=== PATIENT | male | born 1965 | race Caucasian/White ===

== ENCOUNTER 2021-11-28 09:29 | Emergency (ER) | payer OTHER ==
[~2021-11-28] VITALS: Ht 195.6 cm; Wt 136.1 kg
[~2021-11-28 09:29] MED LIST: ABIRATERONE AC250 MG PO; CELEXA20 MG PO; DIOVAN320 MG PO; NORVASC10 MG PO; PREDNISONE5 MG PO
== END 2021-11-28 10:48 | disposition home or self-care (01) ==
LOC: ED 09:29
DX: I10 Essential (primary) hypertension (principal); Z85.46 Personal history of malignant neoplasm of prostate; Z79.899 Other long term (current) drug therapy; Z79.52 Long term (current) use of systemic steroids
CPT/HCPCS: 99283

== ENCOUNTER 2022-06-17 12:20 | Emergency (ER) | payer OTHER ==
[~2022-06-17] VITALS: Ht 195.6 cm; Wt 130.6 kg
[2022-06-17] MEDS ORDERED: AMLODIPINE BESY10 MG PO (12:39)
--- NOTE | 2022-06-19 15:49 | EKG ---
[facility] [address] [place] [address] Signed Sinus rhythm with premature atrial complexes with aberrant conduction Otherwise normal ECG No previous ECGs available Confirmed by BLAINE DODD MD ([id number]) on 06/19/2022 3:49:01 PM Electronically Signed By: BLAINE DODD MD 06/19/22 1549 PATIENT NAME: YANN KAHN Electrocardiogram DATE OF : 61 PHYSICIAN: BLAINE DODD MD REPORT #: [id number] REPORT IS CONFIDENTIAL AND NOT TO BE RELEASED WITHOUT AUTHORIZATION
== END 2022-06-17 14:18 | disposition home or self-care (01) ==
LOC: ED 12:20
DX: I49.1 Atrial premature depolarization (principal); E87.6 Hypokalemia; I10 Essential (primary) hypertension; Z79.899 Other long term (current) drug therapy; Z79.52 Long term (current) use of systemic steroids
CPT/HCPCS: 36415; 80053; 83735; 84484; 85025; 93005; 93010; 99285-25; A9270

== ENCOUNTER 2022-11-07 23:07 | Emergency (ER) | payer OTHER ==
[~2022-11-07] VITALS: Ht 195.6 cm; Wt 137.0 kg
[~2022-11-07 23:07] MED LIST changes: +AMLODIPINE BESY10 MG PO
--- NOTE | 2022-11-09 13:03 | EKG ---
[facility] [address] [place] [address] Signed Normal sinus rhythm Normal ECG No previous ECGs available Confirmed by BUSHRA LEROY MD ([id number]) on 11/09/2022 1:03:19 PM Electronically Signed By: BUSHRA LEROY MD 11/09/22 1303 PATIENT NAME: YANN KAHN Electrocardiogram DATE OF : 61 PHYSICIAN: BUSHRA LEROY MD REPORT #: [id number] REPORT IS CONFIDENTIAL AND NOT TO BE RELEASED WITHOUT AUTHORIZATION
== END 2022-11-08 06:20 | disposition home or self-care (01) ==
LOC: ED 23:07
DX: T46.1X2A Poisoning by calcium-channel blockers, intentional self-harm, initial encounter (principal); I10 Essential (primary) hypertension; Z79.899 Other long term (current) drug therapy; Z79.52 Long term (current) use of systemic steroids
CPT/HCPCS: 36415; 80053; 81001; 84443; 85025; 87502; 93005; 93010; 99285-25; G0480; U0003

== ENCOUNTER 2024-08-31 10:31 | Emergency (ER) | payer MEDICARE, OTHER ==
[~2024-08-31] VITALS: Ht 190.5 cm; Wt 142.6 kg
[2024-08-31] MEDS ORDERED: OXYCODONE HCL5 MG PO (10:53)
[2024-08-31] MEDS ORDERED: ondansetron HCL 4 MG/2 ML VIAL IV ONE (11:15)
[2024-08-31] MEDS ORDERED: HYDROmorphone HCL 1 MG/ML SYR IV PRN (11:15)
[2024-08-31 11:19] LABS: BASOPHILS 0.8 % (0-2); EOSINOPHILS 1.2 % (0-6); HEMOGLOBIN 13.2 g/dL (12.0-18.0); LYMPHOCYTES 19.1 % (24-44); MCH 30.8 (27-36); MCHC 34.6 g/dl (30-36); MCV 88.9 fl (81-99); MONOCYTES 10.3 % (0-12); NEUTROPHILS 68.6 % (39-80); PLATELET COUNT 278 K/uL (140-440); RBC 4.28 M/ul (4.3-5.7)
[2024-08-31 11:33] LABS: ALBUMIN 3.8 g/dL (3.4-5.0); ALBUMIN/GLOBULIN RATIO 1.19 (1.1-2.4); ANION GAP 13.3 (7-21); BUN/CREATININE RATIO 14.63 (6.0-28.6); CALCIUM 8.6 mg/dL (8.5-10.1); CREATININE, SERUM 1.23 mg/dL (0.70-1.30); POTASSIUM 3.3 mmol/L (3.5-5.1)
[2024-08-31] MEDS ORDERED: DEXAMETHASONE4 MG PO (15:36)
[2024-08-31] MEDS ORDERED: DEXAMETHASONE SOD PHOS 10 MG/ML VIAL PO ONE (15:45)
[2024-08-31] MEDS ORDERED: dexAMETHasone 4 MG TAB PO ONE (16:00)
[2024-08-31 16:01] VITALS: BP 158/79
== END 2024-08-31 16:17 | disposition home or self-care (01) ==
LOC: ED 10:31
PROVIDERS: Emergency Medicine
DX: C61 Malignant neoplasm of prostate (principal); C79.51 Secondary malignant neoplasm of bone; G95.29 Other cord compression; I10 Essential (primary) hypertension; Z79.899 Other long term (current) drug therapy
CPT/HCPCS: 36415; 72157; 72158; 80053; 85025; 99284-25; A9577; J1171; J2405; J8540

== ENCOUNTER 2024-10-26 16:51 | Emergency (ER) | payer MEDICARE, OTHER ==
[~2024-10-26] VITALS: Ht 190.5 cm; Wt 132.4 kg
[~2024-10-26 16:51] MED LIST changes: +DEXAMETHASONE4 MG PO; +OXYCODONE HCL5 MG PO
[2024-10-26] MEDS ORDERED: HYDROmorphone HCL 1 MG/ML SYR IV PRN (17:30)
[2024-10-26 17:47] LABS: BASOPHILS 0.6 % (0-2); EOSINOPHILS 3.1 % (0-6); HEMATOCRIT 37.3 % (35.0-50.0); HEMOGLOBIN 13.2 g/dL (12.0-18.0); LYMPHOCYTES 11.7 % (24-44); MCH 30.3 (27-36); MCHC 35.4 g/dl (30-36); MCV 85.6 fl (81-99); MONOCYTES 10.8 % (0-12); NEUTROPHILS 73.8 % (39-80); PLATELET COUNT 280 K/uL (140-440); RBC 4.36 M/ul (4.3-5.7); RDW 14.2 (10.5-15.0)
[2024-10-26 18:01] LABS: ALBUMIN 3.7 g/dL (3.4-5.0); ALBUMIN/GLOBULIN RATIO 1.16 (1.1-2.4); BUN/CREATININE RATIO 11.6 (6.0-28.6); CALCIUM 8.5 mg/dL (8.5-10.1); CREATININE, SERUM 1.12 mg/dL (0.70-1.30); PROTEIN, TOTAL 6.9 g/dL (6.4-8.2)
[2024-10-26] MEDS ORDERED: ondansetron HCL 4 MG/2 ML VIAL IV ONE (19:15)
[2024-10-26] MEDS ORDERED: ONDANSETRON ODT8 MG PO (19:54)
[2024-10-26] MEDS ORDERED: DILAUDID2 MG PO (19:54)
[2024-10-26] MEDS ORDERED: HYDROmorphone HCL 2 MG HOME.PACK PO ONE (20:00)
[2024-10-26 20:30] VITALS: BP 182/107
== END 2024-10-26 20:30 | disposition home or self-care (01) ==
LOC: ED 16:51
PROVIDERS: Emergency Medicine
DX: C79.51 Secondary malignant neoplasm of bone (principal); C61 Malignant neoplasm of prostate; I10 Essential (primary) hypertension; Z79.899 Other long term (current) drug therapy
CPT/HCPCS: 36415; 71260; 72131; 80053; 85025; 99285-25; J1171; J2405; Q9967

== ENCOUNTER 2024-11-09 14:40 | Emergency (ER) | payer MEDICARE, OTHER ==
[~2024-11-09] VITALS: Ht 190.5 cm; Wt 131.5 kg
[~2024-11-09 14:40] MED LIST changes: +DILAUDID2 MG PO; +ONDANSETRON ODT8 MG PO
--- OUTSIDE RECORDS SUMMARY | 2024-11-09 14:46 | XMS ---
PreManage Notification: YANN KAHN Security 21 Dealer Events No recent Security Events currently on file CRITERIA MET - [facility] - 2 Visits in 30 Days CARE PROVIDERS -[facility] Dentist: Wildlife Protector [facility] PHONE: [phone] Arsen Peterson- Dentist: Wildlife Protector Current [facility] PHONE: [phone] [facility] [place]: [facility] Current [facility] PHONE: [phone] ZAK RODRÍGUEZ Internal Medicine: Medical Oncology Current PHONE: [phone] Surendra Spain Physician Current PHONE: [phone] MOUNIKA MCMAHAN Neurological Surgery Current PHONE: [phone] Thom has no Care Guidelines for this patient. Edson VISIT COUNT (12 MO.) 3 LINDA Font[facility]ot TOTAL 3 NOTE: Visits indicate total known visits. ED/UCC VISIT TRACKING (12 MO.) 11/09/2024 14:40 [facility]DA Godinez [place] TYPE: Emergency COMPLAINT: - ABDOMINAL PAIN 10/26/2024 16:51 [facility] [place] TYPE: Emergency COMPLAINT: - POST OP PROBLEM DIAGNOSES: - Essential (primary) hypertension - Malignant neoplasm of prostate - Other usp (current) drug therapy - Secondary malignant neoplasm of bone - Weakness 08/31/2024 10:32 [facility] [place] TYPE: Emergency COMPLAINT: - BACK PAIN DIAGNOSES: - Anesthesia of skin - Essential (primary) hypertension - Malignant neoplasm of prostate - Other cord compression - Other longitudinal float operator (current) drug therapy - Secondary malignant neoplasm of bone INPATIENT VISIT TRACKING (12 MO.) 09/05/2024 16:58 [facility] TYPE: Neuro Surgery DIAGNOSES: [id number]. Unspecified cord compression - Malignant neoplasm of prostate - Unspecified cord compression [email or web address]
[2024-11-09] MEDS ORDERED: LIDOCAINE 2% VISCOUS 6 ML SYR TOP ONE (15:15)
[2024-11-09] MEDS ORDERED: SOD PHOSPHATE/SOD BIPHOSPHATE 132 ML BTL PR ONE (16:00)
[2024-11-09 16:36] VITALS: BP 177/91
== END 2024-11-09 16:35 | disposition home or self-care (01) ==
LOC: ED 14:40
DX: K56.41 Fecal impaction (principal); K64.9 Unspecified hemorrhoids; C61 Malignant neoplasm of prostate; I10 Essential (primary) hypertension; Z79.899 Other long term (current) drug therapy
CPT/HCPCS: 99283

== ENCOUNTER 2025-03-31 17:46 | Inpatient (IN) | payer MEDICARE ==
[~2025-03-31] VITALS: Ht 195.6 cm; Wt 129.4 kg
[2025-03-31 18:25] LABS: BASOPHILS 0.4 % (0.2-1.2); EOSINOPHILS 0.7 % (0.8-7.0); HEMATOCRIT 40.4 % (40.1-51.0); HEMOGLOBIN 14.4 g/dL (13.7-17.5); LYMPHOCYTES 19.6 % (21.8-53.1); MCH 29.4 PG (25.7-32.2); MCHC 35.6 g/dL (32.3-36.5); MCV 82.4 fL (79.0-92.2); NEUTROPHILS 65.9 % (34.0-67.9); PLATELET COUNT 214 K/uL (163-337)
[2025-03-31] MEDS ORDERED: SODIUM CHLORIDE 0.9% 1,000 ML IV ONE (18:30)
[2025-03-31] MEDS ORDERED: ondansetron HCL 4 MG/2 ML VIAL IV PRN ×2 (18:30→22:00)
[2025-03-31] MEDS ORDERED: HYDROmorphone HCL 1 MG/ML SYR IV PRN ×3 (18:30→22:00)
[2025-03-31 18:35] LABS: ALBUMIN 4.2 g/dL (3.4-5.0); ALBUMIN/GLOBULIN RATIO 1.31 (1.1-2.4); ANION GAP 14.1 (7-21); BILIRUBIN, TOTAL 1.7 mg/dL (0.2-1.0); BUN/CREATININE RATIO 8.94 (6.0-28.6); CALCIUM 9.5 mg/dL (8.5-10.1); CREATININE, SERUM 1.23 mg/dL (0.70-1.30); POTASSIUM 3.1 mmol/L (3.5-5.1); PROTEIN, TOTAL 7.4 g/dL (6.4-8.2)
[2025-03-31] MEDS ORDERED: POTASSIUM CHLORIDE 10 MEQ TABCR PO ONE (20:45)
[2025-03-31] MEDS ORDERED: FENTANYL 50 MCG/HR 1 EA TDSY TD ONE (20:45)
[2025-03-31] MEDS ORDERED: ACETAMINOPHEN 325 MG TAB PO PRN (22:00)
[2025-03-31 23:07] VITALS: BP 217/118
--- NOTE | 2025-03-31 23:10 | NUR ---
BEDSIDE REPORT RECEIVED FROM MALCOLM Diallo RN. PATIENT ADMITTED TO MS RM 121. VS OBTAINED, ASSESSMENT COMPLETED. PATIENT REPORTING 10/10 PAIN. RESPIRATIONS EVEN AND UNLABORED. HE IS REPORTING DISCOMFORT IN BILATERAL HIPS.
[2025-03-31 23:53] VITALS: BP 199/107
[2025-04-01] VITALS (12 sets, daily range): BP systolic 150–203; BP diastolic 80–109
[2025-04-01] MEDS ORDERED: AMLODIPINE BESYLATE 10 MG TAB PO SCH ×2 (00:15→21:00)
[2025-04-01] MEDS ORDERED: LOSARTAN POTASSIUM 100 MG TAB PO SCH (00:15)
[2025-04-01] MEDS ORDERED: LOSARTAN POTASSIUM 100 MG TAB ONE (00:18)
--- NOTE | 2025-04-01 00:27 | NUR ---
SCHEDULED MEDS GIVEN PER ORDER, VS OBTAINED AND RECORDED. PATIENT RESTING, WOKE TO VERBAL CUES. REPORTS PAIN IS IMPROVED AND RATES IT A 3/10. HE DENIES ANY NEEDS, CALL LIGHT IN REACH.
--- NOTE | 2025-04-01 01:48 | NUR ---
VS OBTAINED AND RECORDED. PATIENT RESTING, CPOX AT BEDSIDE. RESPIRATIONS EVEN AND UNLABORED. RESPONDS APPROPRIATELY TO VOICE COMMANDS. NO NEEDS, CALL LIGHT IN REACH.
--- NOTE | 2025-04-01 04:15 | NUR ---
PATIENT GIVEN PRN PAIN MEDICATION FOR 7/10 PAIN. CPOX AT BEDSIDE. HE DENIES OTHER NEEDS, URINAL EMPTIED. CALL LIGHT IN REACH
--- NOTE | 2025-04-01 05:12 | NUR ---
TC PLACED TO DR. DE LUNA TO DISCUSS BLOOD PRESSURE READINGS AND HOME MEDICATIONS. DR. DE LUNA INFORMED THAT PATIENT HAS NOT BEEN TAKING HIS MEDICATIONS FOR 1 WEEK. NO NEW ORDERS AT THIS TIME.
--- NOTE | 2025-04-01 05:16 | NUR ---
PRN PAIN MEDICATION ADMINISTERED, pt GRIMACING, INITIALLY DECLINES PAIN MEDICATION. SPO2 DROPS TO 82% WITH EYES CLOSED, 2L OXYGEN BY NC APPLIED. pt CLOSING EYES. CALL LIGHT IN REACH. CPOX ON.
--- NOTE | 2025-04-01 07:10 | NUR ---
PT AWAKE AND LAYING IN BED. CALL LIGHT WITHIN REACH, NO REQUESTS AT THIS TIME. REPORT RECEIVED FROM ZOYA Landin RN.
[2025-04-01] MEDS ORDERED: DULOXETINE HCL30 MG PO (07:39)
[2025-04-01] MEDS ORDERED: HYDROMORPHONE HC2 MG PO (07:40)
[2025-04-01] MEDS ORDERED: ELIGARD22.5 MG SUB-Q (07:49)
[2025-04-01] MEDS ORDERED: ZYTIGA500 MG PO (07:51)
--- NOTE | 2025-04-01 08:40 | NUR ---
PT HAD MINIMAL EMESIS AND NAUSEA AFTER FIRST BITE OF BREAKFAST. ZOFRAN GIVEN ORDERED. CALL LIGHT WITHIN REACH.
[2025-04-01 08:54] LABS: ALBUMIN 3.7 g/dL (3.4-5.0); ALBUMIN/GLOBULIN RATIO 1.12 (1.1-2.4); ANION GAP 13.1 (7-21); BILIRUBIN, TOTAL 1.1 mg/dL (0.2-1.0); BUN/CREATININE RATIO 9.61 (6.0-28.6); CALCIUM 8.9 mg/dL (8.5-10.1); CREATININE, SERUM 1.04 mg/dL (0.70-1.30); PHOSPHORUS, INORGANIC 4.8 mg/dL (2.5-4.9); POTASSIUM 3.1 mmol/L (3.5-5.1)
[2025-04-01 08:59] LABS: BASOPHILS 0.3 % (0.2-1.2); EOSINOPHILS 1.4 % (0.8-7.0); HEMATOCRIT 40.3 % (40.1-51.0); HEMOGLOBIN 14.2 g/dL (13.7-17.5); LYMPHOCYTES 13.9 % (21.8-53.1); MCH 29.6 PG (25.7-32.2); MCHC 35.2 g/dL (32.3-36.5); MCV 84.1 fL (79.0-92.2); MONOCYTES 11.7 % (5.3-12.2); NEUTROPHILS 72.4 % (34.0-67.9); PLATELET COUNT 190 K/uL (163-337); RBC 4.79 M/uL (4.63-6.08)
--- NOTE | 2025-04-01 09:00 | NUR ---
PT STATES NAUSEA IS SUBSIDING AND ALMOST GONE. PT STATES PAIN IS STILL TOLERABLE AT THIS TIME AT 4/10 TO ROEBRTO. HIPS. PT ATTEMPTING TO EAT HIS BANANA. NO REQUESTS AT THIS TIME. CALL LIGHT WITHIN REACH. CPOX ON. PT CURRENTLY ON RA WITH O2 SATS 94%.
--- NOTE | 2025-04-01 09:40 | NUR ---
PT RESTING IN BED WITH CPOX ON. O2 AT 2L PER NC DUE TO PT 02 SATS DROPPING TO 88 WHEN ASLEEP. PT STATES PAIN IS STILL TOLERABLE AT THIS TIME AND THAT HE WAS ABLE TO EAT HIS BANANA AND IS NO LONGER NAUSEOUS. CALL LIGHT WITHIN REACH.
[2025-04-01] MEDS ORDERED: ZOLEDRONIC4 MG/100 M IV (09:52)
[2025-04-01] MEDS ORDERED: POTASSIUM CHLORIDE 40 MEQ,LIDOCAINE HCL 1% 40 MG in DEXTROSE 5% 250 ML IV ONE (10:00)
--- NOTE | 2025-04-01 10:26 | NUR ---
PATIENT CALLED AT 0830 REPORTING VOMITING AFTER ATTEMPTING TO EAT BREAKFAST. LEBRON BARROS NOTIFIED AND ENTERED THE ROOM. FRESH EMESIS BAGS WERE PROVIDED. DR. DECKER IN THE ROOM WITH PATIENT.
[2025-04-01] MEDS ORDERED: ondansetron HCL 4 MG/2 ML VIAL IV PRN (10:30)
[2025-04-01] MEDS ORDERED: ACETAMINOPHEN 325 MG TAB PO PRN (10:30)
[2025-04-01] MEDS ORDERED: PROCHLORPERAZINE EDISYLATE 10 MG/2 ML VIAL IV PRN (10:30)
--- NOTE | 2025-04-01 10:30 | NUR ---
medications reconciled by pharmacy
--- NOTE | 2025-04-01 10:35 | NUR ---
DR DE LUNA IN TO SEE PT AND DISCUSS POC.
--- NOTE | 2025-04-01 11:32 | NUR ---
PT/OT IN TO WORK WITH PATIENT.
[2025-04-01] MEDS ORDERED: DULOXETINE HCL 30 MG CAP PO SCH (11:51)
[2025-04-01] MEDS ORDERED: PHARMACY RENAL DOSE ADJUSTMENT 1 DOSE MISC PO SCH (12:00)
--- NOTE | 2025-04-01 12:18 | NUR ---
PT SITTING UP IN CHAIR EATING LUNCH. DENIES NAUSEA AT THIS TIME. RATES PAIN TO ROBERTO HIPS 4/10 AND STATES IS TOLERABLE. CALL LIGHT WITHIN REACH. NO REQUESTS AT THIS TIME.
--- NOTE | 2025-04-01 13:07 | NUR ---
CM MET WITH PATIENT FOR DISCHARGE PLANNING. PT LIVES WITH DTR IN WITH 6 STAIRS TO ENTER. PT'S DTR PICKS UP MEDICATIONS AND GROCERIES AND ASSISTS WITH TRANSPORTATION TO APPOINTMENTS LOCALLY. PT USES A PRIVATE TRANSPORT, [facility], FOR TRANSPORTATION TO [place]. PT USES [facility]UB CHAIR. PT HAS HAD HOME HEALTH FOR SHORT TIME IN THE PAST AND WOULD BE OPEN TO SERVICES AGAIN IF NEEDED. PT ANTICIPATES DISCHARGE HOME WITHOUT SERVICES ONCE PAIN CONTROL IS OBTAINED. CM WILL CONTINUE TO FOLLOW AND ASSIST WITH IDENTIFIED DISCHARGE NEEDS.
--- NOTE | 2025-04-01 14:01 | NUR ---
OBSERVATION NURSE IN TO VISIT WITH PT. PT SITTING UP IN CHAIR WITH LEGS ELEVATED, STATES PAIN REMAINS AT 4/10 TO ROBERTO. HIPS AND IS TOLERABLE AT THIS TIME. CALL LIGHT WITHIN REACH. PT ON RA WITH CPOX ON. O2 SAT 94%. NO REQUESTS AT THIS TIME.
--- NOTE | 2025-04-01 14:08 | NUR ---
UR CLINICAL REVIEW: 2 MN FOR VERSALUS-PER RADIO FREQUENCY TECHNICIAN MEETS INPT FOR PAIN CONTROL WITH NEED FOR IV PAIN MANAGEMENT MEDICARE INPT 04/01/25 @ 1048 ORDER MATCHES REG NO AUTH REQUIRIED PER MEDICARE GUIDELINES DISCHARGE DIPO PENDING FURTHER PAIN CONTROL/PT/OT EVALS
--- NOTE | 2025-04-01 15:33 | NUR ---
2PA WITH FWW FROM THE CHAIR TO THE BED. FRESH ICE WATER WAS PROVIDED. URINAL EMPTIED, RINSED, AND RECORDED. PATIENT'S CELL PHONE WAS RETRIEVED.
--- NOTE | 2025-04-01 15:33 | NUR ---
PT LAYING IN BED WITH EYES CLOSED AND RESPIRATIONS EVEN AND UNLABORED. CPOX ON AND PT ON RA. O2 SAT 91%. CALL LIGHT WITHIN REACH. NO SIGNS OF PAIN OR DISCOMFORT AT THIS TIME.
--- NOTE | 2025-04-01 16:38 | NUR ---
PT RESTING IN BED WITH EYES CLOSED AND RESPIRATIONS EVEN AND UNLABORED. CPOX ON, PT ON RA. 02 SAT 93%. CALL LIGHT WITHIN REACH.
--- NOTE | 2025-04-01 16:57 | NUR ---
PT AWAKE AND RESTING IN BED. STATES HE WANTS TO WAKE UP A LITTLE BIT MORE BEFORE HE EATS HIS DINNER. STATES PAIN 4/10 TO ROBERTO HIPS, STATES IS TOLERABLE AT THIS TIME. CALL LIGHT WITHIN REACH. CPOX ON AND 02 SAT 96% ON RA.
--- NOTE | 2025-04-01 17:32 | NUR ---
ZOFRAN GIVEN FOR NAUSEA. PT HAD 50 CC EMESIS. PT SITTING UP IN BED WITH CALL LIGHT WITHIN REACH. PARDEEP LEMON STOCKBRIDGE GIVEN TO PT REQUESTED, ALONG WITH WARM BLANKET. NO OTHER REQUESTS AT THIS TIME.
--- NOTE | 2025-04-01 18:01 | NUR ---
PT RESTING IN BED, STATES NAUSEA HAS SUBSIDED. ENSURE MAX PROTEIN GIVEN. PT HAS REDENNED BUT BLANCHABLE AREA TO COCCYX. ENCOURAGED PT TO REPOSITION OFTEN, PT STATED UNDERSTANDING. CALL LIGHT WITHIN REACH.
--- NOTE | 2025-04-01 19:59 | NUR ---
INTO CHECK ON PATIENT. PATIENT IS VERY NAUSEATED. PT REQUESTING MORE ZOFRAN. PATIENT IS NOT ABLE TO HAVE MORE ZOFRAN YET. COMPAZINE ON MEDICATION LIST AND GIVEN.
--- NOTE | 2025-04-01 21:43 | NUR ---
PATIENT IS SLEEPING, REGULAR RESPIRATIONS NOTED. CPOX ON, CALL LIGHT WITHIN REACH, LIGHTS TURNED DOWN.
--- NOTE | 2025-04-01 23:27 | NUR ---
PATIENT CURRENTLY SLEEPING HIS BACK, SNORING. REGULAR RESPIRATIONS NOTED.
[2025-04-02] VITALS (12 sets, daily range): BP systolic 161–203; BP diastolic 81–106
--- NOTE | 2025-04-02 00:06 | NUR ---
Pt report received from LEBRON Pina. Pt is resting supine in bed, eyes closed, CPOX at 94% on room air. Breathing is regular, even, and non-labored. Side rails up x4, call light in reach. White board updated.
--- NOTE | 2025-04-02 02:20 | NUR ---
While in with pt for IV pain and anti-nausea medication, pt states when he woke up, he was itchy all over. Notified charge authorizer and will contact Dr. Buckley shortly, to request benadryl if a bed bath and lotion does not work.
--- NOTE | 2025-04-02 02:52 | NUR ---
PHONE CALL TO MD, NOTIFIED pt ITCHY. PRN BENADRYL ORDERED, REPEATED BACK TO VERIFY ORDER. EMAR UPDATED. PRIMARY RN NOTIFIED OF NEW ORDER.
[2025-04-02] MEDS ORDERED: diphenhydrAMINE HCL 50 MG/ML VIAL IV PRN (03:00)
[2025-04-02 05:59] LABS: BASOPHILS 0.4 % (0.2-1.2); EOSINOPHILS 1.3 % (0.8-7.0); HEMATOCRIT 39.4 % (40.1-51.0); HEMOGLOBIN 13.7 g/dL (13.7-17.5); LYMPHOCYTES 15.9 % (21.8-53.1); MCH 29.3 PG (25.7-32.2); MCHC 34.8 g/dL (32.3-36.5); MCV 84.4 fL (79.0-92.2); MONOCYTES 13.7 % (5.3-12.2); NEUTROPHILS 68.5 % (34.0-67.9); PLATELET COUNT 179 K/uL (163-337); RBC 4.67 M/uL (4.63-6.08)
[2025-04-02 06:14] LABS: ALBUMIN 3.7 g/dL (3.4-5.0); ALBUMIN/GLOBULIN RATIO 1.16 (1.1-2.4); ANION GAP 11.4 (7-21); BILIRUBIN, TOTAL 1.5 mg/dL (0.2-1.0); BUN/CREATININE RATIO 11.34 (6.0-28.6); CALCIUM 9.1 mg/dL (8.5-10.1); CREATININE, SERUM 0.97 mg/dL (0.70-1.30); POTASSIUM 3.4 mmol/L (3.5-5.1); PROTEIN, TOTAL 6.9 g/dL (6.4-8.2)
[2025-04-02] MEDS ORDERED: POTASSIUM CHLORIDE 10 MEQ TABCR PO ONE (07:45)
--- NOTE | 2025-04-02 08:50 | NUR ---
In and spoke with Davey. He states he lives with his daughter that works at the hospital as a nurse. He states his 5 yo granddaughter stays with him. He states he has had severe pain for the last several days and 4 days last week. He states last week he was unable to walk due to his pain and could not leave his room for 4 days. Pt does not believe his pain is from his metastatic cancer, but from nerve pain following a surgery. We discussed briefly Hospice. He does not want Hospice as he feels it is too soon. He cannot remember if he qualifies for cg in the home. His is on Medicaid long term care phlebotomist and lives at [place]. He agrees I can call [facility] to check if he qualifies for OPI or Aging and Disability for cg hours.
[2025-04-02] MEDS ORDERED: ENOXAPARIN SODIUM 40 MG/0.4 ML SYR SUB-Q SCH (09:00)
--- NOTE | 2025-04-02 09:56 | NUR ---
I called and spoke with Linnea at [facility]. She was able to view Davey qualified for OPI through [employer] in January. She states it was not followed up on. She is emailing Noah at [facility] to ask her to call Davey or the family.
--- NOTE | 2025-04-02 10:05 | NUR ---
Called and left a message for pts daughter, Chery. Requested a call and let her know he has been approved for an in home cg.
--- NOTE | 2025-04-02 10:11 | NUR ---
Physical therapist, Irene, advised that the pt's systolic BP was 198. Reviewed BP trends over the last 24 hours and noted they are trending up. She spoke with Dr. Buckley who advised he would order hydralazine.
[2025-04-02] MEDS ORDERED: hydrALAZINE HCL 20 MG/ML VIAL IV PRN (10:15)
--- NOTE | 2025-04-02 11:17 | NUR ---
1000 BP WAS 203/106, LEBRON PAK NOTIFIED. RETAKEN AT 1115 AND BP WAS 193/81. LEBRON PAK NOTIFIED AGAIN AND REQUESTED IT TO BE RECHECKED AT 1130. PATIENT IS CURRENTLY CALM AND RESTING IN BED.
--- NOTE | 2025-04-02 11:35 | NUR ---
Administered 10mg Apresoline IV per Emar for elevated SBP of 203. Rechecked the BP 15 minutes post administration and obtained a SBP of 193. PT currently in with pt and SBP is 160.
--- NOTE | 2025-04-02 11:45 | NUR ---
Notified Dr. Buckley of pt's updated BP readings. PT had advised that after they got him up to the chair, the pt's SBP was 201.
--- NOTE | 2025-04-02 12:38 | NUR ---
In with pt for hourly rounding and pain assessment. Pt declines any pain meds at this time because "i'm feeling pretty foggy". Pt is sitting up in the chair with his lunch tray in front of him, legs elevated, call light in reach. When offered, pt states he would like to eat some of the fruit that his daughter brought for him, and a fresh lemon-barrow twist over ice. Pt denies further needs at this time.
--- NOTE | 2025-04-02 13:00 | NUR ---
REPORT RECIEVED FROM LEBRON PAK. PATIENT SITTING UP IN HIS CHAIR AND REPORTING 6/10 PAIN, BUT DECLINES PAIN MEDICATION AT THIS TIME. PATIENT REPORTS HE WILL LET THIS RN KNOW WHEN HE WANTS PAIN MEDICATION. PATIENT WITHOUT ANY NEEDS AT THIS TIME. PATIENT ATTEMPTING TO EAT LUNCH.
[2025-04-02] MEDS ORDERED: LOSARTAN POTASSIUM 50 MG TAB PO SCH (13:47)
--- NOTE | 2025-04-02 13:55 | NUR ---
PATIENT REPORTING NAUSEA. PATIENT MEDICATED PER EMAR. PATIENT REQUESTING TO GET INTO BED. THIS RN AND ABELARDO ROTH ASSISTED PATIENT BACK IN TO BED VIA 2PR SBA/PIVOT. FRESH LINEN PROVIDED. IV FLUSHED WITH 10ML OF NS AND IS SALINE LOCKED. HOT PACKS X2 PROVIDED. LIGHT DIMMED. PATIENT WITHOUT FURTHER NEEDS AT THIS TIME. CALL LIGHT AND PERSONAL BELONGINGS ARE WITHIN REACH.
--- NOTE | 2025-04-02 14:54 | NUR ---
2PA WITH FWW PIVOT TRANSFER FROM THE CHAIR TO THE BED BY LEBRON CARLOS AND THIS JUNIOR PROGRAMMER ANALYST. PATIENT REPORTED TO RN FEELING NAUSEOUS. HELP WAS OFFERED TO RN ONCE TRANSFER WAS COMPLETE BUT DECLLINED NEEDING FURTHER HELP.
--- NOTE | 2025-04-02 14:54 | NUR ---
PATIENT RESTING IN BED ON HIS BACK WITH HIS EYES CLOSED AND HIS MOUTH OPEN. EVEN AND UNLABORED RESPIRATIONS NOTED. CALL LIGHT AND PERSONAL BELONGINGS ARE WITHIN REACH.
--- NOTE | 2025-04-02 15:45 | NUR ---
PATIENT RESTING IN BED ON HIS BACK WITH HIS EYES CLOSED AND MOUTH OPENED. EVEN AND UNLABORED RESPIRATIONS NOTED. CALL LIGHT AND PERSONAL BELONGINGS ARE WITHIN REACH.
--- NOTE | 2025-04-02 17:35 | NUR ---
QUALITY CONTROL TECH [employer] REPORTS PATIENT WITH BP OF 200/95. THIS RN IN ROOM TO ASSESS PATIENT. PATIENT REPORT THAT THE NAUSEA IS GONE, BUT PAIN IS "GETTING UP THERE". PAIN MEDICATIONS OFFERED AND PATIENT STATES "NO, NOT YET. I'LL LET YOU KNOW WHEN I NEED THEM." PATIENT DENIES A HEADACHE. THIS RN RECHECKED PATIENT'S BP ON THE RIGHT ARM AND WAS 161/82. FRESH ICE WATER PROVIDED. PATIENT HOB LOWERED PER PATIENT REQUEST, BUT PATIENT DENIES WANTING TO BE REPOSITIONED. PATIENT WITHOUT FURTHER NEEDS AT THIS TIME. CALL LIGHT AND PERSONAL BELONGINGS ARE WITHIN REACH. VITAL SIGNS ARE STABLE. CPOX AT BEDSIDE.
--- NOTE | 2025-04-02 18:38 | NUR ---
PATIENT RESTING IN BED ON HIS BACK WITH HIS EYES CLOSED AND HIS MOUTH OPEN. EVEN AND UNLABORED RESPIRATIONS NOTED. CALL LIGHT AND PERSONAL BELONGINGS ARE WITHIN REACH. CPOX AT BEDSIDE.
--- NOTE | 2025-04-02 19:24 | NUR ---
RECEIVED REPORT FROM LEBRON CARLOS. PT RESTING UPON ENTERING ROOM. DENIES NEEDS OR CONCERNS AT THIS TIME AND IS QUICKLY BACK TO SLEEP. CALL LIGHT WITHIN REACH.
[2025-04-02] MEDS ORDERED: FENTANYL 75 MCG/HR TD SCH ×2 (21:00)
--- NOTE | 2025-04-02 21:45 | NUR ---
PT RESTING QUIETLY, AWAKENED EASILY. REPORTS BILAT HIP PAIN 04/18, MEDICATED W/ PRN DILAUDID. PT REQUESTS PRN ZOFRAN W/ IV PAIN MED IT MAKES HIM QUEASY-PRN ZOFRAN ADMINISTERED. LSC. HRR. BTA, LBM 03/27, WANTS BOWEL MEDS IN AM. VOIDS VIA URINAL. BLE NUMBNESS STERNUM DOWN BASELINE. RFA IV WNL. HAS NOT BEEN OOB THIS SHIFT. CALL LIGHT WITHIN REACH.
--- NOTE | 2025-04-02 21:50 | NUR ---
FENTANYL PATCH TO LEFT SHOULDER REMOVED W/ CHARGE NURSE PACO AND WASTED. NEW FENTANYL PATCH PLACED TO RIGHT SHOULDER.
--- NOTE | 2025-04-02 23:43 | NUR ---
B/P RECHECKED, STILL ELEVATED BUT IMPROVED FROM PREVIOUS. WILL CONT TO MONITOR.
[2025-04-03] VITALS (9 sets, daily range): BP systolic 126–172; BP diastolic 67–86
--- NOTE | 2025-04-03 01:15 | NUR ---
PT SLEEPING SOUNDLY. APPEARS COMFORTABLE.
--- NOTE | 2025-04-03 01:42 | NUR ---
DX: METASTATIC CANCER. PAINFUL BILAT HIPS-FENTANYL PATCH DOSAGE INCREASED 04/02. PRN DILAUDID. PT/OT, RECOMMEND 2 ASSIST. ELEVATED B/P, PRN HYDRALAZINE. D/C 1-2 TO DTR'S HOUSE W/ HH OR [facility].
--- NOTE | 2025-04-03 03:06 | NUR ---
SLEEPING SOUNDLY, APPEARS COMFORTABLE.
[2025-04-03 05:48] LABS: BASOPHILS 0.3 % (0.2-1.2); EOSINOPHILS 1.4 % (0.8-7.0); HEMATOCRIT 37.1 % (40.1-51.0); LYMPHOCYTES 14.2 % (21.8-53.1); MCH 29.5 PG (25.7-32.2); MCV 84.3 fL (79.0-92.2); NEUTROPHILS 69.8 % (34.0-67.9); PLATELET COUNT 178 K/uL (163-337)
[2025-04-03 06:10] LABS: ALBUMIN 3.4 g/dL (3.4-5.0); ALBUMIN/GLOBULIN RATIO 1.13 (1.1-2.4); ANION GAP 12.9 (7-21); BILIRUBIN, TOTAL 1.7 mg/dL (0.2-1.0); BUN/CREATININE RATIO 8.92 (6.0-28.6); CREATININE, SERUM 1.12 mg/dL (0.70-1.30); POTASSIUM 3.9 mmol/L (3.5-5.1); PROTEIN, TOTAL 6.4 g/dL (6.4-8.2)
--- NOTE | 2025-04-03 06:45 | NUR ---
PT AWAKE, DENIES NEEDS AT THIS TIME. REPORTS MINIMAL PAIN AND DECLINED OFFER OF PAIN MED THIS AM.
--- NOTE | 2025-04-03 07:47 | NUR ---
RECIEVED REPORT FROM NIGHT RN, BOTH RN IN ROOM THIS MORNING FOR MARINE PAINTER. PT RESTING IN BED, DENIES ANY NEEDS AT THIS TIME. FENTANYL PATCH IN PLACE TO RIGHT UPPER ARM. CALL LIGHT WITHIN REACH. WILL RETURN TO EVALUATE PATIENT LATER.
[2025-04-03] MEDS ORDERED: POLYETHYLENE GLYCOL 3350 1 PACKET PO SCH (09:00)
[2025-04-03] MEDS ORDERED: SENNOSIDES/DOCUSATE 1 EA TAB PO SCH (09:00)
--- NOTE | 2025-04-03 09:07 | NUR ---
PT COMPLETED BREAKFAST. BOWEL MEDS GIVEN - SEE MAR. PT DENIES ANY OTHER NEEDS AT THIS TIME. CALL NATY QUINN.
--- NOTE | 2025-04-03 13:55 | NUR ---
VERIFIED PARAMETERS FOR HYDRALAZINE - PER MD, DISCONTINUE HYDRALAZINE AT THIS TIME. NO NEW ORDERS.
--- NOTE | 2025-04-03 14:00 | NUR ---
NOtified by Mando at [facility], they most likely won't have a bed. I called Juli at [facility] and they have a bed and pts lives there. She requests chart and will let me know if they can accept.
--- NOTE | 2025-04-03 14:30 | NUR ---
Spoke with Brent. He is stating the plans on discharging him home tomorrow. Pt is stating he cannot go home as he cannot walk at this time or get into the home. He cont. to not want to stop treatment and accept hospice. He feels it is too soon. He believes he will have an upcoming cancer treatment. Either medication or radiation. He believes it is not until the middle of April. I called and spoke with Malena at Dr. Sanchez's office. Pt does not have any cancer treatments ordered. I made this call on speaker from pts room. Pt is willing to go to a SNF, but we did have a lengthy discusion about no cancer treatment while in a SNF. If he plans on Chemo, they will not accept him. He is wanting to be placed for 20 days as a therapy pt. I called [facility] and faxed the chart. Pts daughter, Annelise, visited. She would like pt to be placed. She would also like him to accept Hospice. We discussed her dad isn't ready at this point. She also confirms he does not have any treatments scheduled in the next 20 days. I discussed with Chery and Davey, if he would like to speak with [facility] and have an eval for extermination supervisor Medicaid. He agrees. I assisted him to call Linnea Murcia at [facility] to give info.
--- NOTE | 2025-04-03 15:00 | NUR ---
Notified by Juli, they will accept this pt for admit tomorrow. She will let me know a time they can transport in the am. Updated pts daughter, Charge nurse, and Dr. Betancourt. Orders printed for to complete.
--- NOTE | 2025-04-03 16:47 | NUR ---
PT REPORT RECIEVED FROM LEBRON BRO PT LAYING IN BED WITH FENTYNAL PATCH ON PT RIGHT SHOULDER. PT DOES HAVE MILD PAIN AT THIS TIME. PT HAS NO OTHER CONCERNS AND HAS CALL LIGHT IN REACH AT THIS TIME.
--- NOTE | 2025-04-03 16:55 | NUR ---
PT REPORTED PAIN 5-10 AND WAS GIVEN PRN TYLONOL FOR PAIN. PT HAS NO OTHER CONCERNS AT THIS TIME.
--- NOTE | 2025-04-03 17:26 | NUR ---
PT PAIN REASSESSED, PT CURRENTLY HAS 75MG FENT PATCH AND ALSO RECENTLY RECIEVED TYLONOL FOR 5-10 PAIN BILAT HIPS, (SEE EMAR). PT IS CURRENTLY RESTING IN BED AND DENIES NEEDING ANY INTERVENTIONS AT THIS TIME.
--- NOTE | 2025-04-03 18:48 | NUR ---
PT LAYING DOWN IN BED AT THIS TIME, PT DENIES NEEDING PAIN MEDICATION AT THIS TIME AND WAS GIVEN AN ENSURE PER REQUEST OF PT PT HAS NO OTHER CONCERNS CALL LIGHT IN REACH.
--- NOTE | 2025-04-03 19:37 | NUR ---
REPORT RECEIVED FROM DAY SHIFT RN. PATIENT RESTING IN BED, DENIES NEEDS OR PAIN AT THIS TIME. FENTANYL PATCH VERIFIED ON RIGHT SHOULDER BY THIS RN AND CATARINO RN. PATIENT DENIES FURTHER NEEDS. CALL [facility] IN REACH.
--- NOTE | 2025-04-03 20:26 | NUR ---
PATIENT RESTING IN BED, APPEARS COMFORTABLE AT THIS TIME. VS OBTAINED AND RECORDED. SCHEDULED MEDICATION ADMINISTERED. ASSESSMENT COMPLETE. PATIENT DENIES FURTHER NEEDS AT THIS TIME. PATIENT DENIES PAIN. CALL LIGHT IN REACH.
--- NOTE | 2025-04-03 22:42 | NUR ---
PATIENT RESTING IN BED, DENIES NEEDS AT THIS TIME. CALL LIGHT IN REACH.
--- NOTE | 2025-04-04 01:38 | NUR ---
PATIENT RESTING IN BED ON BACK, USING CELL PHONE. PATIENT DENIES NEEDS OR PAIN AT THIS TIME. CALL LIGHT IN REACH.
[2025-04-04 05:51] VITALS: BP 151/73
[2025-04-04 05:55] VITALS: BP 151/73
[2025-04-04 05:56] LABS: BASOPHILS 0.4 % (0.2-1.2); EOSINOPHILS 1.5 % (0.8-7.0); HEMATOCRIT 36.4 % (40.1-51.0); HEMOGLOBIN 12.4 g/dL (13.7-17.5); LYMPHOCYTES 16.5 % (21.8-53.1); MCHC 34.1 g/dL (32.3-36.5); MONOCYTES 16.7 % (5.3-12.2); NEUTROPHILS 64.5 % (34.0-67.9); PLATELET COUNT 177 K/uL (163-337); RBC 4.28 M/uL (4.63-6.08)
--- NOTE | 2025-04-04 05:58 | NUR ---
PATIENT RESTING IN BED ON BACK. RESPIRATIONS EVEN AND UNLABORED. VS AND I&Os OBTAINED AND RECORDED. PATIENT HAS NO FURTHER NEEDS. CALL LIGHT IN REACH.
[2025-04-04 06:20] LABS: ALBUMIN 3.2 g/dL (3.4-5.0); ALBUMIN/GLOBULIN RATIO 1.03 (1.1-2.4); ANION GAP 13.8 (7-21); BILIRUBIN, TOTAL 1.4 mg/dL (0.2-1.0); BUN/CREATININE RATIO 13.18 (6.0-28.6); CALCIUM 8.7 mg/dL (8.5-10.1); CREATININE, SERUM 0.91 mg/dL (0.70-1.30); POTASSIUM 3.8 mmol/L (3.5-5.1); PROTEIN, TOTAL 6.3 g/dL (6.4-8.2)
--- NOTE | 2025-04-04 07:06 | NUR ---
Pt report received from LEBRON Carter. Pt is resting supine in bed, eyes closed, breathing regular, even and non-labored. Side rails up x4, call light in reach. White board updated.
[2025-04-04 08:40] VITALS: BP 180/75
--- NOTE | 2025-04-04 09:18 | NUR ---
Pt discussed in 08 IDT meeting. Pt will dc to [facility] when their transport can pick him up later today. Dr. Betancourt will complete orders. I spoke with Davey and he is ready to go to [facility] with his . Explained IM letter and pt signed.
[2025-04-04] MEDS ORDERED: diphenhydrAMINE HCL 25 MG CAP PO PRN (10:00)
--- NOTE | 2025-04-04 10:30 | NUR ---
Orders completed, PASRR, RX, Dc summary faxed to [facility] at [facility]. I called and updated. She will call when she has a time for transport. Packet completed and placed at the front desk person and charge nurse notified.
--- NOTE | 2025-04-04 10:49 | NUR ---
Brent was very subdued. He was friendly and receptive to having prayers said. He said, "It's all downhill from here." We talked a little and the supportive words seemed to be appreciated.
--- NOTE | 2025-04-04 11:43 | NUR ---
PATIENT DID HIS OWN BED BATH. I DID HELP HIM PUT HIS PANTS ON ALSO HIS SOCKS AND SHOES. PATIENT PUT HIS SHIRT ON. WHEN A NURSE CAME IN TO HELP ME AFTER PATIENT SET OFF THE BED ALARM. WE RAISED THE BED SO IT WAS EASIER FOR HIM TO STAND. WALKER IN FRONT OF HIM. WE HELPED HIM PULL HIS PANTS UP THE REST OF THE WAY. PATIENT BUTTONED AND ZIPPED. PATIENT IS LAYING BACK DOWN IN HIS BED. PATIENT DID WASH HIS FACE AND BRUSH HIS TEETH THIS MORNING.
--- NOTE | 2025-04-04 13:18 | NUR ---
[facility] transport here to transport pt via wheelchair to [place]. PC to [facility], spoke with LEBRON Villalobos, this pt's embedded case manager at [facility], and gave verbal pt report to her. Questions answered.
--- NOTE | 2025-04-04 14:00 | NUR ---
Notified pt discharged to [facility] at 2 pm.
[2025-04-05] MEDS ORDERED: fentaNYL 1 EACH TDSY TD SCH ×2 (09:00→21:00)
== END 2025-04-04 13:17 | DRG 948 ==
LOC: ED 17:46 → MS 17:47
PROVIDERS: Emergency Medicine; ADMIT Family Medicine; ATTEND Family Medicine
DX: G89.3 Neoplasm related pain (acute) (chronic) (principal); C61 Malignant neoplasm of prostate; I10 Essential (primary) hypertension; F39 Unspecified mood [affective] disorder; E87.6 Hypokalemia; K59.00 Constipation, unspecified; Z66 Do not resuscitate; F32.A Depression, unspecified; Z98.890 Other specified postprocedural states; Z79.899 Other long term (current) drug therapy
CPT/HCPCS: 36415; 74177; 80053; 83735; 84100; 85025; 94762; 96375; 96376; 97162; 97166; 97530; 97535; 99284-25; A9270; J0360; J0780; J1171; J1200; J1650; J2405; J3480; J3490; J7030; J7060; Q9967